=== PATIENT | male | born 1955 | race Caucasian/White ===

== ENCOUNTER 2021-02-06 14:54 | Outpatient (CLI) | payer OTHER, SELFPAY ==
--- NOTE | ~2021-02-06 | US_ITS ---
EXAMINATION: US thyroid EXAM DATE: 02/06/2021 15:19 INDICATION: E04.9 - Nontoxic goiter, unspecified palpable thyroid nodule. TECHNIQUE: Multiple grayscale and Doppler images of the thyroid were obtained (by a technologist who performed the scan) and subsequently reviewed. Individual nodules and recommendations may be reporte d in accordance with TI-RADS system as designated by the 2017 ACR White Paper TI-RADS committee. The re is no prior study for comparison. FINDINGS: The right thyroid lobe measures 6.2 x 2.8 x 2.3 cm, the left thyroid lobe measuring 5.1 x 2.1 x 2.4 c m. Homogeneous thyroid echogenicity. There is a nodule in the lower pole of the right thyroid lobe measuring 3.6 x 2.2 x 1.5 centimeters, solid (2 points), heterogeneous echogenicity (1 point), wider than tall, lobulated margin (2 points), containing punctate echogenic foci consistent with microcalcification (3 points), category TR5 for t his nodule. IMPRESSION: Recommend ultrasound-guided biopsy of right thyroid lobe nodule. Reviewed, dictated and finalized at location A.
== END 2021-02-06 14:55 | disposition home or self-care (01) ==
PROVIDERS: PCP Family Medicine; Visit Provider Family Medicine
DX: E04.9 Nontoxic goiter, unspecified (principal)
CPT/HCPCS: 76536

== ENCOUNTER 2021-02-18 13:23 | Outpatient (CLI) | payer OTHER, SELFPAY ==
--- NOTE | ~2021-02-18 | US_ITS ---
EXAMINATION: US FNA w image guidance DATE: 02/18/2021 14:09 INDICATION: Nontoxic single thyroid nodule TECHNIQUE: A time-out was performed to verify the patient's name, date of , and procedure to be performed . The procedure and its benefits and risks were discussed with the patient. Risks specifically discus sed included bleeding and infection. The patient understood the risks and agreed to proceed. The neck was prepped and draped in the usual sterile manner. 3 mL 1% lidocaine was used for local anesthesia . 6 passes were made with a 25G needle into the lesion. Appropriate needle location was documented with continuous sonographic guidance. The specimens were passed to the lead neurodiagnostic technologist in the room. A sterile bandage was applied. There were no immediate complications. FINDINGS: Grayscale ultrasound images demonstrate biopsy needles advanced into the 3.8 cm solid TI RADS 5 right thyroid nodule of concern. IMPRESSION: 1. Successful ultrasound-guided fine needle aspiration of the 3.8 cm solid TI RADS 5 right thyroid n odule of concern. Reviewed, dictated and finalized at location A. IMPRESSION: 1. Successful ultrasound-guided fine needle aspiration of the 3.8 cm solid TI RADS 5 right thyroid nodule of concern.
== END 2021-02-18 13:24 | disposition home or self-care (01) ==
LOC: ANHIMG 13:27
PROVIDERS: PCP Family Medicine; Visit Provider Family Medicine
DX: E04.1 Nontoxic single thyroid nodule (principal)
CPT/HCPCS: 10005; 88173; 88305

== ENCOUNTER 2022-07-27 15:00 | Outpatient (CLI) | payer OTHER, SELFPAY ==
[2022-07-27 18:47] LABS: Alanine Aminotransferase 46 U/L (6-50); Albumin Level 4.2 g/dL (3.5-5.1); Alkaline Phosphatase 58 U/L (38-126); Anion Gap 9 mmol/L (8-16); Aspartate Amino Transferase 38 U/L (17-59); Bilirubin,Total 0.5 mg/dL (0.2-1.3); Blood Urea Nitrogen 22 mg/dL (9-20); Calcium 8.8 mg/dL (8.4-10.2); Carbon Dioxide 29 mmol/L (22-30); Chloride 102 mmol/L (98-107); Estimated Glomerular Filt Rate > 60; Glucose 83 mg/dL (65-110); Sodium 140 mmol/L (137-145)
== END 2022-07-27 15:01 | disposition home or self-care (01) ==
LOC: ANHGOSHLAB 15:02
PROVIDERS: PCP Family Medicine; Visit Provider Family Medicine
DX: R79.89 Other specified abnormal findings of blood chemistry (principal)
CPT/HCPCS: 36415; 80053

== ENCOUNTER 2023-03-01 11:08 | Outpatient (CLI) | payer OTHER, SELFPAY ==
[2023-03-01 16:55] LABS: Basophils Percent Auto 0.6 % (0.2-1.2); Eosinophils Absolute Auto 0.3 K/mm3 (0-0.3); Hematocrit 44.4 % (42.0-52.0); Hemoglobin 14.6 g/dL (14.0-18.0); Immature Granulocyte Absolute 0.01 K/mm3 (0.00-0.031); Immature Granulocyte Percent A 0.2 % (0-0.5); Lymphocytes Absolute Auto 1.75 K/mm3 (0.9-3.2); Lymphocytes Percent Auto 33.9 % (18.3-44.2); Mean Corpuscular HGB Conc 32.9 g/dl (32-36); Mean Corpuscular Hemoglobin 31.6 pg (26-34); Mean Corpuscular Volume 96.1 fl (80-100); Mean Platelet Volume 10.5 fl (7.4-10.4); Monocytes Absolute Auto 0.6 K/mm3 (0.1-0.6); Neutrophils Absolute Auto 2.5 K/mm3 (1.3-6.7); Neutrophils Percent Auto 48.3 % (45.5-73.1); Platelet Count Result 193 k/mm3 (150-375); Red Blood Count 4.62 M/mm3 (4.6-6.20); Red Cell Distribution Width 12.7 % (11.5-14.5); White Blood Count 5.2 K/mm3 (4.5-10.0)
[2023-03-01 16:56] LABS: Alanine Aminotransferase 68 U/L (6-50); Albumin Level 4.2 g/dL (3.5-5.1); Alkaline Phosphatase 59 U/L (38-126); Anion Gap 2 mmol/L (8-16); Aspartate Amino Transferase 57 U/L (17-59); Bilirubin,Total 0.8 mg/dL (0.2-1.3); Blood Urea Nitrogen 21 mg/dL (9-20); Carbon Dioxide 36 mmol/L (22-30); Chloride 101 mmol/L (98-107); Cholesterol 140 mg/dL (0-200); Estimated Glomerular Filt Rate > 60; Glucose 89 mg/dL (65-110); HDL Direct 66 mg/dL; Sodium 139 mmol/L (137-145); Triglycerides 31 mg/dL (<150)
[2023-03-01 17:08] LABS: LDL Cholesterol Direct 59 mg/dL
[2023-03-01 17:20] LABS: Vitamin D 25 Hydroxy 32.4 ng/mL
[2023-03-01 17:27] LABS: Prostate Specific Antigen 2.6 ng/mL (< OR = 4.0)
[2023-03-01 17:33] LABS: Thyroid Stimulating Hormone Reflex 0.713 uIU/mL (0.465-4.68)
== END 2023-03-01 11:09 | disposition home or self-care (01) ==
LOC: ANHGOSHLAB 11:08
PROVIDERS: PCP Family Medicine; Visit Provider Family Medicine
DX: Z00.00 Encounter for general adult medical examination without abnormal findings (principal); Z13.220 Encounter for screening for lipoid disorders; E55.9 Vitamin D deficiency, unspecified; Z79.899 Other long term (current) drug therapy; E04.1 Nontoxic single thyroid nodule; F98.8 Other specified behavioral and emotional disorders with onset usually occurring in childhood and adolescence; I73.00 Raynaud's syndrome without gangrene; E53.8 Deficiency of other specified B group vitamins; Z12.5 Encounter for screening for malignant neoplasm of prostate
CPT/HCPCS: 36415; 80053; 80061; 82306; 82607; 84153; 84443; 85025; G0103

== ENCOUNTER → 2023-09-06 11:22 | Outpatient (CLI) | payer OTHER, SELFPAY ==
--- NOTE | ~2023-09-06 | XR_ITS ---
EXAMINATION: XR chest 2V DATE: 09/06/2023 11:32 INDICATION: Cough TECHNIQUE: PA and lateral views of the chest are obtained. COMPARISON: 05/31/2009 FINDINGS: There is a small right pleural effusion. There are minimal airspace opacities of the right lung base. The cardiomediastinal silhouette is normal. There is moderate thoracic spondylosis. IMPRESSION: 1. Small right pleural effusion with minimal right basilar airspace opacity, consistent with atelecta sis versus pneumonia. Reviewed, dictated and finalized at location L. [employer] IMPRESSION: 1. Small right pleural effusion with minimal right basilar airspace opacity, co nsistent with atelectasis versus pneumonia.
== END ==
PROVIDERS: PCP Family Medicine; Visit Provider Nurse Practitioner Family
DX: R05.9 Cough, unspecified (principal); J90 Pleural effusion, not elsewhere classified
CPT/HCPCS: 71046

== ENCOUNTER 2023-12-13 16:24 | Outpatient (CLI) | payer OTHER, SELFPAY ==
--- NOTE | ~2023-12-13 | XR_ITS ---
XR chest 2V 12/13/2023 16:37 Indication: Shortness of breath Procedure: 2 view chest Comparison: No prior studies for comparison. Findings: Small right pleural effusion. Heart size normal. No focal pneumonia, edema or pneumothorax. No acute osseous abnormality. Impression: 1: Small right pleural effusion. Reviewed, dictated and finalized at location L. Impression: 1: Small right pleural effusion.
== END 2023-12-13 16:25 | disposition home or self-care (01) ==
LOC: ANHIMG 16:28
PROVIDERS: PCP Family Medicine; Visit Provider Family Medicine
DX: J45.20 Mild intermittent asthma, uncomplicated (principal); R06.02 Shortness of breath; J90 Pleural effusion, not elsewhere classified
CPT/HCPCS: 71046

== ENCOUNTER 2024-04-23 09:58 | Outpatient (CLI) | payer OTHER, SELFPAY ==
[2024-04-23 11:38] LABS: Basophils Percent Auto 0.4 % (0.2-1.2); Eosinophils Absolute Auto 0.4 K/mm3 (0-0.3); Eosinophils Percent Auto 6.1 % (0-4.4); Hematocrit 43.3 % (42.0-52.0); Hemoglobin 14.5 g/dL (14.0-18.0); Immature Granulocyte Absolute 0.01 K/mm3 (0.00-0.031); Immature Granulocyte Percent A 0.1 % (0-0.5); Lymphocytes Absolute Auto 1.43 K/mm3 (0.9-3.2); Lymphocytes Percent Auto 20.2 % (18.3-44.2); Mean Corpuscular HGB Conc 33.5 g/dl (32-36); Mean Corpuscular Volume 95.6 fl (80-100); Mean Platelet Volume 9.9 fl (7.4-10.4); Monocytes Absolute Auto 0.8 K/mm3 (0.1-0.6); Monocytes Percent Auto 11.4 % (2.6-8.5); Neutrophils Absolute Auto 4.4 K/mm3 (1.3-6.7); Neutrophils Percent Auto 61.8 % (45.5-73.1); Platelet Count Result 191 k/mm3 (150-375); Red Blood Count 4.53 M/mm3 (4.6-6.20); Red Cell Distribution Width 12.1 % (11.5-14.5); White Blood Count 7.1 K/mm3 (4.5-10.0)
[2024-04-23 11:56] LABS: Alanine Aminotransferase 38 U/L (6-50); Albumin Level 4.2 g/dL (3.5-5.1); Alkaline Phosphatase 60 U/L (38-126); Anion Gap 6 mmol/L (4-12); Aspartate Amino Transferase 64 U/L (17-59); Bilirubin,Total 0.5 mg/dL (0.2-1.3); Blood Urea Nitrogen 27 mg/dL (9-20); Calcium 8.9 mg/dL (8.4-10.2); Carbon Dioxide 32 mmol/L (22-30); Chloride 100 mmol/L (98-107); Cholesterol 136 mg/dL (0-200); Estimated Glomerular Filt Rate > 60; Glucose 97 mg/dL (65-110); HDL Direct 57 mg/dL; Potassium 4.1 mmol/L (3.4-5.0); Sodium 138 mmol/L (137-145); Triglycerides 45 mg/dL (<150)
[2024-04-23 12:07] LABS: LDL Cholesterol Direct 53 mg/dL
[2024-04-23 12:16] LABS: Vitamin D 25 Hydroxy 65.2 ng/mL
[2024-04-23 12:21] LABS: Prostate Specific Antigen 3.1 ng/mL (< OR = 4.0)
== END 2024-04-23 09:59 | disposition home or self-care (01) ==
LOC: ANHGOSHLAB 09:59
PROVIDERS: PCP Family Medicine; Visit Provider Family Medicine
DX: Z00.00 Encounter for general adult medical examination without abnormal findings (principal); Z12.5 Encounter for screening for malignant neoplasm of prostate; K59.00 Constipation, unspecified; I73.00 Raynaud's syndrome without gangrene; F98.8 Other specified behavioral and emotional disorders with onset usually occurring in childhood and adolescence; E04.1 Nontoxic single thyroid nodule; E55.9 Vitamin D deficiency, unspecified; E53.8 Deficiency of other specified B group vitamins; E78.5 Hyperlipidemia, unspecified
CPT/HCPCS: 36415; 80053; 80061; 82306; 82607; 84153; 84443; 85025; G0103

== ENCOUNTER 2025-07-03 02:10 | Day surgery (SDC) | payer MEDICARE, SELFPAY ==
[2025-06-24 14:32] VITALS: BMI 25.2
--- OUTSIDE RECORDS SUMMARY | 2025-07-03 02:15 | XMS_ITS | Clinical Summary ---
Author Organization [employer] [facility] Address [address] [place] [address] Care Team Providers Care Complaint Investigator Name Role Phone Unavailable Primary Care Provider Unavailabl e Medications carisoprodoL (SOMA) 350 mg tablet Take 1 tablet (350 mg) by mouth three times a day as needed for muscle pain 90 Tablet 2 09/20/2024 4:37 PM [employer]LTRY S[employer]ER 4 Active tamsulosin (FLOMAX) 0.4 mg capsule Take one capsule (0.4 mg) orally every day at bedtime 90 Capsule 1 07/23/2024 6:17 PM [employer]LTRY [employer] 4 Active albuterol sulfate HFA 90 mcg/actuation aerosol inhaler INHALE 1 PUFF BY MOUTH EVERY 4 HOURS NEEDED FOR SHORTNESS OF BREATH OR WHEEZING. 8.5 Gram 07/26/2024 5:12 PM P[employer]LTRY S[employer]ER 4 Active albuterol sulfate HFA 90 mcg/actuation aerosol inhaler Take 1 Puff by inhalation every 4 hours as needed. 8.5 Gram 10/22/2024 7:17 PM POULTRY SEXER 5 Active tamsulosin (FLOMAX) 0.4 mg capsule Take 1 Capsule (0.4 mg) by mouth daily at bedtime. 90 Capsule 1 02/10/2025 2:18 PM CDT 5 Active carisoprodoL (SOMA) 350 mg tablet Take 1 Tablet (350 mg) by mouth 3 times daily as needed muscle pain 270 Tablet 1 06/14/2025 12:48 PM CDT 5 Active albuterol sulfate HFA 90 mcg/actuation aerosol inhaler TAKE 1 PUFF BY INHALATION EVERY 4 HOURS NEEDED FOR SHORTNESS OF BREATH OR WHEEZING. 8.5 Gram 04/26/2025 5:56 PM CDT 5 Active carisoprodoL (SOMA) 350 mg tablet Take 1 Tablet (350 mg) by mouth 3 times daily as needed FOR MUSCLE PAIN. 270 Tablet 1 Active hydrocortisone (PROCTOZONE-HC ) 2.5 % cream with perineal applicator APPLY RECTALLY TWICE DAILY NEEDED FOR HEMORRHOIDS. 28 Gram 1 04/26/2025 5:56 PM CDT Active bimatoprost (Lumigan) 0.01 % solution ADMINISTER 1 DROP IN RIGHT EYE DAILY. 7.5 mL Active tamsulosin (FLOMAX) 0.4 mg capsule Take 1 Capsule (0.4 mg) by mouth daily at bedtime. 90 Capsule 1 04/26/2025 5:56 PM CDT Active latanoprost (XALATAN) 0.005 % solution Administer 1 Drop into affected eye(s) daily at bedtime 2.5 mL 11 06/26/2025 12:16 PM CDT Active dextroamphetam ine-amphetamin e (ADDERALL) 15 mg tablet Take 1 Tablet (15 mg) by mouth 2 times daily (at least 4-6 hours apart) 60 Tablet 06/28/2025 5:38 PM CDT Active dextroamphetam ine-amphetamin e (ADDERALL) 15 mg tablet Take 1 Tablet (15 mg) by mouth 2 times daily AT LEAST 4-6 HOURS APART. Max Daily Amount: 30 mg 60 Tablet 05/28/2025 7:42 PM CDT 06/27/20 25 Discontinu ed(Reorder ) Encounters Date Type Department Care Team Description 06/25/2025 External Device Data [facility] Provider, Abstract 06/04/2025 External Device Data [facility] Provider, Abstract 05/28/2025 External Device Data [facility] Provider, Abstract 05/07/2025 External Device Data [facility] Provider, Abstract 04/23/2025 External Device Data [facility] Provider, Abstract from Last 3 Months Social History Tobacco Use Types Packs/Day Years Used Date Smoking Tobacco: Never Assessed Sex and Gender Information Value Date Recorded Sex Assigned at Not on file Legal Sex Male 12:33 PM [employer] Gender Identity Not on file Sexual Orientation Not on file Plan of Treatment Health Maintenance Due Date Last Done Comments DTAP/TDAP/TD VACCINES (1 - Tdap) 1973 COLORECTAL SCREENING 1999 Colorectal Cancer Screening 1999 FIT-DNA Q 3 years 1999 FIT/FOBT Q 1 year 1999 Flex Sig/CT Colonography Q 5 years 1999 PNEUMOCOCCAL VACCINE 50+ YEARS (1 of 1 - PCV) 08/02/20 ZOSTER VACCINE (1 of 2) 2004 INFLUENZA VACCINE (#1) 2025 RSV VACCINE (60+ or ) (1 - 1-dose 75+ series) 2029 Insurance RX [employer] (INTERNAL) [facility] RX [employer] RX Member Subscriber Plan / Payer (Ef fective 2024-Present) Name:Kalpesh Pinedo Relation to Subscriber:Not on file Name:Kalpesh Pinedo Subscriber ID:Not on file Date of :1955 Payer ID:Not on file Group ID:[id number] Type:RX Medicare Part D Address: [address]
--- NOTE | 2025-07-03 07:08 | WPDANESEPPF ---
Anes - Initial Pre Proc Eval Procedure: Operation Date: 07/03/25 10:00 Proposed Procedures p Screening Colonoscopy - Shan Arteaga MD Date/Time: 07/03/25 07:08 Surgeon: Shan Arteaga MD Pre Op Diagnosis: Personal history of colon polyps, unspecified Patient Data Age: 69 Gender: M Height: 1.7 m Weight: 73 kg Allergies Allergy/AdvReac Type Severity Reaction Status Date / Time aspirin Allergy Unknown Unknown Verified 07/03/25 08:45 codeine Allergy Unknown Unknown Verified 07/03/25 08:45 diclofenac Allergy Unknown TIGHTNESS Verified 07/03/25 08:45 IN BREATHING/CHEST ibuprofen Allergy Unknown ITCHINESS Verified 07/03/25 08:45 NSAIDS (Non-Steroidal Allergy Unknown Unknown Verified 07/03/25 08:45 Anti-Inflamma prednisone Allergy Unknown FEELING Verified 07/03/25 08:45 OF IMPENDING DOOM FOR 4 HOURS, TIGHTNESS IN BREATH tramadol Allergy Unknown Unknown Verified 07/03/25 08:45 amitriptyline AdvReac Mild SEVERE Verified 07/03/25 08:45 DIZZINESS, EYE PRESSURE Home Medications ?Medication ?Instructions ?Recorded ?Confirmed ?Type cholecalciferol (vitamin D3) 50 50 mcg PO DAILY #90 tabs 11/18/22 07/03/25 Rx mcg (2,000 unit) tablet albuterol sulfate 90 mcg/actuation 1 inh inhalation Q4H PRN shortness 04/26/25 07/03/25 Rx aerosol inhaler (Ventolin HFA) of breath or wheezing #8.5 grams bimatoprost 0.01 % eye drops 1 drp RIGHT EYE DAILY #7.5 mL 04/26/25 07/03/25 Rx (Lumigan) carisoprodol 350 mg tablet 350 mg PO TID PRN muscle pain #270 04/26/25 07/03/25 Rx tabs chlorpheniramine maleate 4 mg 4 mg PO Q4H 04/26/25 07/03/25 History tablet hydrocortisone 2.5 % topical cream 1 applic RECTAL BID PRN 04/26/25 07/03/25 Rx with perineal applicator hemorrhoids #30 grams pseudoephedrine HCl 60 mg tablet 60 mg PO Q4-6H 04/26/25 07/03/25 History tamsulosin 0.4 mg capsule (Flomax) 0.4 mg PO QHS #90 caps 04/26/25 07/03/25 Rx dextroamphetamine-amphetamine 15 15 mg PO BID #60 tabs 06/27/25 07/03/25 Rx mg tablet (Adderall) Patient hx anesthesia problems: none Family hx anesthesia problems: none Results Review: All pre-operative results and documents have been reviewed as part of the pre-operative evaluation. [facility] Past Medical History Medical History (Updated 07/03/25 @ 09:19 by Shan Arteaga MD) Colon polyp Asthma BPH (benign prostatic hyperplasia) Hemorrhoids Raynaud's disease, idiopathic Vitamin D deficiency ADD (attention deficit disorder) without hyperactivity Constipation Right thyroid nodule Nasal polyp Erectile dysfunction Environmental allergies Upper back pain Mild intermittent asthma without complication Surgical History Surgical History History of removal of cyst (~03/2021) back Hx of colonoscopy (Unknown) History of tonsillectomy and adenoidectomy (~1959) History of nasal surgery age 20's & 30's X 2 - polypectomy Family History Family History Other Family history of cardiovascular disease Social History Social History Smoking status: Never smoker Second hand tobacco smoke exposure: No Alcohol intake: never Substance use: never Substance use type: does not use Lack of Transportation: No Lack of Food: Never True Current Housing: I Have Housing Concerned About Future Housing: No Difficulty Paying Gas/Electric Bills: No Difficulty Paying for Meds: No Currently Unemployed: No Education: High School Diploma/GED Difficulty w/ Childcare or Family Care: No Living arrangements: with family Additional living arrangements comments: Occupation/Education: retired Gender identity (if verbalized by the patient): Male Sexual Orientation (if Verbalized by the Patient): Straight or Heterosexual Agree to blood products: Yes Anes - Eval Final PreProcedure Day of Procedure 07/03/25 07:08 Patient weight: normal Heart: regular rate and rhythm Lungs: clear to auscultation and normal air movement Airway: Mallampati scale class II Neurological: alert and oriented Last oral intake: >/= 8 hours ASA classification: II Emergent: no Anesthetic plan: proceed Anesthesia type and monitoring: general GIVS and standard monitoring Results Review: All pre-operative results and documents have been reviewed as part of the pre-operative evaluation. Informed Consent: The patient's anesthetic plan and its attendant risks and benefits were discussed with the patient/family/POA. Questions were solicited and answers provided to the satisfaction of the patient/family/POA.
[2025-07-03 08:48] VITALS: PULSE 78; RESP 16; TEMP 36.6; O2SAT 100
[2025-07-03] MEDS: LACTATED RINGERS 1,000 ML 150 ML IV CONT (09:06)
--- NOTE | 2025-07-03 09:18 | PM.HPGS ---
History of Present Illness History of Present Illness Consent: Risks, benefits, and alternatives have been discussed and questions answered. Patient agrees to proceed with procedure. Chief complaint: Personal history of colon polyps, unspecified Narrative: Kalpesh Pinedo is a 69 year old male with history of colon polyp, last colonoscopy 2019 Review of Systems Review of Systems: All systems reviewed & are unremarkable except as noted in HPI and below PMFSH Past Medical History Medical History (Updated 07/03/25 @ 09:19 by Shan Arteaga MD) Colon polyp Asthma BPH (benign prostatic hyperplasia) Hemorrhoids Raynaud's disease, idiopathic Vitamin D deficiency ADD (attention deficit disorder) without hyperactivity Constipation Right thyroid nodule Nasal polyp Erectile dysfunction Environmental allergies Upper back pain Mild intermittent asthma without complication Surgical History Surgical History History of removal of cyst (~03/2021) back Hx of colonoscopy (Unknown) History of tonsillectomy and adenoidectomy (~1959) History of nasal surgery age 20's & 30's X 2 - polypectomy Family History Family History Other Family history of cardiovascular disease Social History Social History Smoking status: Never smoker Second hand tobacco smoke exposure: No Alcohol intake: never Substance use: never Substance use type: does not use Lack of Transportation: No Lack of Food: Never True Current Housing: I Have Housing Concerned About Future Housing: No Difficulty Paying Gas/Electric Bills: No Difficulty Paying for Meds: No Currently Unemployed: No Education: High School Diploma/GED Difficulty w/ Childcare or Family Care: No Living arrangements: with family Additional living arrangements comments: Occupation/Education: retired Gender identity (if verbalized by the patient): Male Sexual Orientation (if Verbalized by the Patient): Straight or Heterosexual Agree to blood products: Yes Meds Home Medications and Allergies Home Medications ?Medication ?Instructions ?Recorded ?Confirmed ?Type cholecalciferol (vitamin D3) 50 50 mcg PO DAILY #90 tabs 11/18/22 07/03/25 Rx mcg (2,000 unit) tablet albuterol sulfate 90 mcg/actuation 1 inh inhalation Q4H PRN shortness 04/26/25 07/03/25 Rx aerosol inhaler (Ventolin HFA) of breath or wheezing #8.5 grams bimatoprost 0.01 % eye drops 1 drp RIGHT EYE DAILY #7.5 mL 04/26/25 07/03/25 Rx (Lumigan) carisoprodol 350 mg tablet 350 mg PO TID PRN muscle pain #270 04/26/25 07/03/25 Rx tabs chlorpheniramine maleate 4 mg 4 mg PO Q4H 04/26/25 07/03/25 History tablet hydrocortisone 2.5 % topical cream 1 applic RECTAL BID PRN 04/26/25 07/03/25 Rx with perineal applicator hemorrhoids #30 grams pseudoephedrine HCl 60 mg tablet 60 mg PO Q4-6H 04/26/25 07/03/25 History tamsulosin 0.4 mg capsule (Flomax) 0.4 mg PO QHS #90 caps 04/26/25 07/03/25 Rx dextroamphetamine-amphetamine 15 15 mg PO BID #60 tabs 06/27/25 07/03/25 Rx mg tablet (Adderall) Allergies Allergy/AdvReac Type Severity Reaction Status Date / Time aspirin Allergy Unknown Unknown Verified 07/03/25 08:45 codeine Allergy Unknown Unknown Verified 07/03/25 08:45 diclofenac Allergy Unknown TIGHTNESS Verified 07/03/25 08:45 IN BREATHING/CHEST ibuprofen Allergy Unknown ITCHINESS Verified 07/03/25 08:45 NSAIDS (Non-Steroidal Allergy Unknown Unknown Verified 07/03/25 08:45 Anti-Inflamma prednisone Allergy Unknown FEELING Verified 07/03/25 08:45 OF IMPENDING DOOM FOR 4 HOURS, TIGHTNESS IN BREATH tramadol Allergy Unknown Unknown Verified 07/03/25 08:45 amitriptyline AdvReac Mild SEVERE Verified 07/03/25 08:45 DIZZINESS, EYE PRESSURE Vital Signs Vital Signs - 24 hr 07/03/25 08:48 Temperature 97.8 F Pulse Rate 78 Respiratory Rate 16 Pulse Oximetry 100 Oxygen Delivery Room Air Exam Const: General: comfortable and no acute distress HENMT: Face/Nose/Sinus: Normal nares present Eyes: General: appearance normal, both eyes and all related structures Neck: Neck: no JVD Resp: Auscultation: clear to auscultation bilaterally Cardio: Rate: regular rate Rhythm: regular rhythm GI: Inspection: non-distended GI Palp: Yes Soft to palpation Extrem: General: normal to inspection Psych: Mental Status: mental status grossly normal Assessment and Plan Assessment and plan (1) Colon polyp: Code(s): K63.5 - Polyp of colon Status: Acute Assessment and Plan: colonoscopy
[2025-07-03 09:36] VITALS: BP 136/78; PULSE 79; RESP 24; O2SAT 100
[2025-07-03 09:46] VITALS: BP 126/75; PULSE 71; RESP 16; O2SAT 100
[2025-07-03 09:56] VITALS: BP 124/76; PULSE 67; RESP 19; O2SAT 100
== END 2025-07-03 09:59 | disposition home or self-care (01) ==
PROVIDERS: PCP Family Medicine; Referring Provider Family Medicine; Visit Provider Internal Medicine Gastroenterology
PROC: 0DJD8ZZ Inspection of Lower Intestinal Tract, Via Natural or Artificial Opening Endoscopic (ICD-10-PCS; CPT 45378; principal; 2025-07-03 10:00)
DX: Z12.11 Encounter for screening for malignant neoplasm of colon (principal); K64.8 Other hemorrhoids; J45.909 Unspecified asthma, uncomplicated; I73.00 Raynaud's syndrome without gangrene; E55.9 Vitamin D deficiency, unspecified; N52.9 Male erectile dysfunction, unspecified; N40.0 Benign prostatic hyperplasia without lower urinary tract symptoms; F98.8 Other specified behavioral and emotional disorders with onset usually occurring in childhood and adolescence; Z79.51 Long term (current) use of inhaled steroids; Z98.890 Other specified postprocedural states; Z86.0100 Personal history of colon polyps, unspecified; Z82.49 Family history of ischemic heart disease and other diseases of the circulatory system
CPT/HCPCS: G0105; J2704; J7120